=== PATIENT | male | born 1935 | race Caucasian/White ===

== ENCOUNTER 2016-12-26 23:36 | Inpatient (IN) | payer MEDICARE, BC ==
--- NOTE | ~2016-12-26 | CN ---
Consultation Report [facility] [address] [place]. [address] NAME: STANLEY DERAS : 35 STATUS : ADM IN PAT#: [id number] AGE: 81 ADM/REG DATE : 12/27/16 MR#: [id number] REPORT SERV DATE: 12/28/16 DICTATED BY: CHUN MORALES DATE: 12/28/16 REPORT STATUS : Draft TRANSCRIBED BY: MODYvonne DATE: 12/28/16 CARDIOLOGY CONSULTATION NOTE DATE OF CONSULTATION: 12/28/2016 REASON FOR CONSULTATION: Consideration of LINQ implantable loop recorder. HISTORY OF PRESENT ILLNESS: Mr. Deras is an 81-year-old man with a past medical history significant for Parkinson's disease. The patient has no previous cardiovascular history. He specifically denies any history of atrial fibrillation, atrial dysrhythmia, or cardiovascular disease. The patient was apparently in his usual state of health until the evening of 12/26/2016. The patient was watching TV in a lounge's chair when he suddenly felt very weak and had difficulty speaking. The patient was unable to ambulate by himself due to left-sided weakness. The patient was brought to [facility] at approximately 08:30 p.m. He was diagnosed with a stroke, and was felt not to be a candidate for tPA. The patient has had an extensive workup at this time including a transthoracic echocardiogram, bilateral carotid duplex ultrasound, and MRI of the head with MRA of the great vessels of the head and neck. The workup has been essentially negative. The patient has grade 1 carotid disease bilaterally with atherosclerotic plaquing of the vertebral arteries noted on magnetic resonance imaging and no other significant occlusive disease reported. The patient did suffer a right pontine infarct according to his MRI scan. At this time, the patient reports that his left-sided weakness is improving. He continues to have a mild dysarthria. He denies any chest pain, palpitations, dyspnea, dizziness, and he denies any history of syncope. PAST MEDICAL HISTORY: 1. Parkinson's disease. 2. Hypertension. 3. Osteoarthritis. 4. History of urinary incontinence. 5. Nlgh-ch-fvhowkoe dementia. 6. Seasonal allergies. PAST SURGICAL HISTORY: Significant for left total knee replacement and umbilical hernia repair. FAMILY HISTORY: Significant for parkinsonian dementia. The patient's father of complications of myocardial infarction and stroke. The patient has two brothers and two sisters, each of which is healthy. SOCIAL HISTORY: The patient has no significant history of tobacco, alcohol, or drug use. He Consultation Report [address] [place]. 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 He is . REVIEW OF SYSTEMS: A complete 12-system review was performed. This is noncontributory except for the pertinent positives and negatives noted in the history of present illness above. PHYSICAL EXAMINATION: VITAL SIGNS: Temperature is 99.4 degrees Fahrenheit, blood pressure is 150/69 mmHg, respirations 18, heart rate is 67 beats per minute and regular, oxygen saturation is 94% on room air. CONSTITUTIONAL: The patient is an elderly white man, with facial "masking", consistent with his history of Parkinson's disease. He appears to be in no acute distress at this time. EYES: PERRL, EOMI, clear conjunctiva. HEAD/MNT: NCAT with moist mucous membranes and grossly normal hard and soft palate. NECK: Supple with no obvious thyromegaly or lymphadenopathy CARDIOVASCULAR: There is a regular rhythm with a normal S1 and a physiologically split second heart sound. No significant murmurs, rubs, or gallops are noted. PULMONARY: Clear to auscultation bilaterally with decreased respiratory effort, but no wheezing, rales, rhonchi, or dullness to percussion. ABDOMINAL: Soft, non-tender, non-distended with no hepatosplenomegaly noted. EXTREMITIES: There is 1+ ankle edema. MUSCULOSKELETAL: Grossly normal strength and range of motion in all extremities INTEGUMENTARY: Skin appears intact with no bruises, wounds or active lesions noted NEURO/PSYC: Alert and oriented x3, with no dysarthria, facial droop or lateralizing weakness noted. 12-LEAD EKG: The patient's 12-lead EKG shows normal sinus rhythm with a heart rate of 68 beats per minute. There is no significant abnormality. ECHOCARDIOGRAM: This shows normal left ventricular systolic function with an ejection fraction of 64%. There is normal right ventricular function. There is mild aortic insufficiency with no other significant valvular heart disease. An agitated saline contrast study is negative for intracardiac shunting. LABORATORY DATA: The patient's lab workup is reviewed. There are no clinically significant lab abnormalities noted except for a very mildly elevated ESR. CARDIAC TELEMETRY: The patient's cardiac nurse monitoring is reviewed. The patient is currently in sinus bradycardia. There are no significant arrhythmias noted on the patient's nurse monitoring at this time. ASSESSMENT AND PLAN: Cryptogenic stroke: Given the patient's advanced age, this is most likely a plaque rupture phenomenon. However, I feel it would not be unreasonable for the patient to have an implantable loop recorder placed. The patient and his family wished to proceed and this apparently has been recommended to them by the Neurology Service. I have Consultation Report [address] [place]. [address] NAME: STANLEY DERAS : 35 STATUS : ADM IN [facility]#: [id number] AGE: 81 ADM/REG DATE : 12/27/16 MR#: [id number] REPORT SERV DATE: 12/28/16 DICTATED BY: CHUN MORALES DATE: 12/28/16 REPORT STATUS : Draft TRANSCRIBED BY: LARS DATE: 12/28/16 discussed this with the EP service. The EP service will evaluate the patient later today, and plan on ILR placement tomorrow morning. The patient has no other active cardiovascular issues, and my paining can be discharged to the rehab following placement of his implantable loop recorder tomorrow, provided the EP Service agrees. Thank you for allowing me to participate in the care of Mr. Deras. The Cardiology Service will continue to follow the patient during this hospitalization. KHUSHI/LARS Chun Morales MD / [id number] CC: Janice Jasso M.D.
--- NOTE | ~2016-12-26 | HP ---
History And Physical [place] [id number] [facility] [place]. [address] NAME: STANLEY DERAS : 35 STATUS : ADM Anselmo PAT#: [id number] AGE: 81 ADM/REG DATE : 12/26/16 MR#: [id number] REPORT SERV DATE: 12/27/16 DICTATED BY: DATE: REPORT STATUS : Draft TRANSCRIBED BY: MODL DATE: 12/27/16 DATE OF ADMISSION: 12/26/2016 The patient is admitted to the [facility] Hospitalist Service. CHIEF COMPLAINT: Weakness. HISTORY OF PRESENT ILLNESS: Mr. Deras is an 81-year-old white male with Parkinson disease and minimal other past medical history, who was in his usual state of health until around 6 p.m., when his noticed that he was too weak to get up out of his chair after eating supper. She felt that he may have had slightly garbled speech at that point. He has a chair lift at home and so she attempted to use that to get him up, but he was unable to. He had a walker in his house from a knee replacement seven years ago, so she was able to get him up with that, and walked him to the restroom, where she continued to notice that he was too weak for her to be able to manage. The patient refused to be transported by EMS, and so was brought to the ER by his with ER arrival time of 10:15. NIH stroke scale score is 2-3, and the patient's symptoms have been discussed with Neurology, who has determined he is not a candidate for tPA. Currently, dysarthria has resolved and the patient's reports that he is back to his baseline mentation and speaking. However, he remains very weak, particularly in bilateral lower extremities, and when asked his only other complaint is of a sense of imbalance and difficulty sensing where the ground is. The patient takes aspirin daily for "preventative reasons," but has no history of coronary artery disease, prior CVA, or TIAs. He has minimal cardiovascular risk factors. There is documented history of hypertension, but he does not take any medications for this and his reports this has not actually been an issue for him. He has no known diabetes and no known issues with his cholesterol. "He is healthy except for his Parkinson's." CT scan of the brain without contrast was obtained and is normal, as are CBC and electrolyte panel, and the patient is referred to the Hospitalist Service for admission. REVIEW OF SYSTEMS: A full 14-point review of systems is negative except as dictated in the history of present illness. Of note, the patient has been experiencing a particularly stressful few days, packing up his house and preparing to move to [place] to live closer to their eldest son. The patient's was concerned that the stress may have affected symptom onset today. Primary care provider is Dr. Angel Kohler and neurologist is Dr. Ayde Lacey. PAST MEDICAL HISTORY: Includes Parkinson disease, osteoarthritis, and notes that he has been incontinent of urine for the past three-four months. History And Physical [address] [address] NAME: STANLEY DERSA : 35 STATUS : ADM Anselmo PAT#: [id number] AGE: 81 ADM/REG DATE : 12/26/16 MR#: [id number] REPORT SERV DATE: 12/27/16 DICTATED BY: DATE: REPORT STATUS : Draft TRANSCRIBED BY: LARS DATE: 12/27/16 PAST SURGICAL HISTORY: Includes knee replacement and umbilical hernia surgery. ALLERGIES: NO KNOWN DRUG ALLERGIES. MEDICATIONS: 1. Aspirin 81 mg p.o. at bedtime. 2. Sinemet 25/100, two tablets p.o. three times daily before meals. 3. Vitamin D3 2000 units p.o. daily. 4. Aricept 15 mg p.o. at bedtime. 5. Nikole 180 mg p.o. daily as needed for allergy symptoms. 6. Ibuprofen 200 mg p.o. daily. 7. Mirapex 0.25 mg p.o. three times a day with meals. 8. Rasagiline 1 mg p.o. daily. 9. Citracal 500 mg p.o. daily. SOCIAL HISTORY: The patient is and his is here at the bedside. As stated above, they are in the process of moving to [place] to live closer to their eldest son. He uses a cane to ambulate at baseline and a lift chair, but otherwise is largely independent of his activities of daily living, toileting and dressing by himself. He has no history of tobacco use or alcohol use and no illicit substance use. FAMILY HISTORY: Pertinent for dementia in his mom, and believes that the actual diagnosis was Parkinson's. Father had myocardial infarction and CVA in his 70s. The patient has two brothers and two sisters, all of whom are healthy. PHYSICAL EXAMINATION: VITAL SIGNS: Blood pressure 138/67, pulse 65, respirations 24, oxygen saturations 97% on room air, temperature 98 degrees. GENERAL: This is a well-developed, well-groomed white male, in no acute distress. Alert and oriented in three dimensions. Pleasant, but minimally conversant. HEENT: Normocephalic, atraumatic. Pupils equally round, reactive to light. No scleral icterus. No conjunctival pallor. No sinus tenderness to palpation. No nasal drainage. Oropharynx moist and pink with no posterior pharyngeal erythema nor exudate. NECK: Supple. No jugular venous distention. No lymphadenopathy. No bruits. CARDIOVASCULAR: Regular rate and rhythm with no murmurs, rubs or gallops. LUNGS: Clear to auscultation bilaterally. No wheezes, crackles, nor rhonchi. ABDOMEN: Soft, nontender, and nondistended with normoactive bowel sounds in four quadrants and no hepatosplenomegaly. EXTREMITIES: No cyanosis, clubbing, or edema. Bilateral dorsalis pedis pulses 2+, equal and symmetric. NEUROLOGIC: Cranial nerves 2 through 12 were tested and are intact. Prominent masked facies. No evidence of tongue deviation, and gag reflexes intact. Sensation is intact to fine touch and temperature in all four limbs. The patient has some resting tremor. Minimal of the left upper extremity and some cogwheeling. Strength in both upper extremities is 5/5. Strength in bilateral lower extremities 4-/5. Toes are bilaterally upgoing. History And Physical [address] [address] NAME: STANLEY DERAS : 35 STATUS : ADM Anselmo PAT#: [id number] AGE: 81 ADM/REG DATE : 12/26/16 MR#: [id number] REPORT SERV DATE: 12/27/16 DICTATED BY: DATE: REPORT STATUS : Draft TRANSCRIBED BY: MODL DATE: 12/27/16 PERTINENT LABS: White blood cell count 7.6, hemoglobin 13.8, hematocrit 42.2, platelets 176. INR 1.0. Sodium 142, potassium 4.0, chloride 108, bicarb 28, BUN 20, creatinine 0.9, glucose 112, calcium 9.1. Review of past laboratory data show prior hemoglobin A1c value of 6.1 in 2016, total cholesterol 152, HDL 48, LDL 79, triglycerides 125 in 2016. Normal PSA of 0.4 at that time and a serum protein electrophoresis normal in 2016. IMAGING: Brain CT without contrast done today shows stable asymmetric prominence of the atrium of the right lateral ventricle, felt to be congenital or developmental variant. No focal chronic or acute CVA and no acute intracranial hemorrhage. Stable advanced diffuse cerebral involutional change. IMPRESSION: 1. Bilateral lower extremity weakness, imbalance, resolved dysarthria - suspect subacute cerebrovascular accident versus transient ischemic attack. 2. Hyperglycemia - rule out diabetes mellitus type 2. 3. Parkinson disease. 4. Osteoarthritis. 5. Recent urinary incontinence. PLAN: 1. The patient is being admitted in observation status to a cardiac telemetry unit. [facility] requested specifically given the neurologic complaints. 2. As discussed above, case has already been reviewed with Neurology, who states the patient is not a tPA candidate and would not benefit from thrombolytic administration. Thus, we will manage the symptoms with Plavix in lieu of the aspirin he takes at home, and Lipitor will be initiated as well. Allow for permissive elevations of blood pressure. 3. Obtain MRI brain and MRA head and neck. 4. Obtain an echocardiogram. 5. Check EKG. 6. Neurologic consultation requested for the morning. 7. PT, OT, speech therapy consults have been requested. 8. Home medications were reviewed and reconciled - continued as appropriate. BOONE/LARS Cuate Torres M.D. / [id number] CC: Cuate Torres M.D. History And Physical [address] [address] NAME: STANLEY DERAS : 35 STATUS : ADM Anselmo PAT#: [id number] AGE: 81 ADM/REG DATE : 12/26/16 MR#: [id number] REPORT SERV DATE: 12/27/16 DICTATED BY: DATE: REPORT STATUS : Draft TRANSCRIBED BY: MODL DATE: 12/27/16 Angel Kohler M.D. Ayde Lacey M.D.
--- NOTE | ~2016-12-26 | DS ---
Discharge Summary [facility] [address] [facility] [place]. [address] NAME: STANLEY CANALES : 35 STATUS : DIS IN PAT#: [id number] AGE: 81 ADM/REG DATE : 12/27/16 MR#: [id number] REPORT SERV DATE: 12/30/16 DICTATED BY: AMARJIT HOWELL DATE: 12/29/16 REPORT STATUS : Draft TRANSCRIBED BY: MODYvonne DATE: 12/29/16 ADMISSION DATE: 12/27/2016 DISCHARGE DATE: 12/29/2016 REASON FOR ADMISSION: This is an 81-year-old male who the evening prior to admission had began feeling very weak, having difficulty speaking, and was unable to get out of his chair due to lower extremity weakness. DISCHARGE DIAGNOSES: 1. Acute cerebrovascular accident of right ramona. 2. Stenosis of left carotid siphon. 3. Parkinson disease. 4. Mild dementia. 5. Osteoarthritis. 6. Urinary incontinence. HOSPITAL COURSE: Acute CVA. The patient on presentation to the emergency room had a CT of the brain, which would show no acute CVA or other acute intracranial pathology. He then had a followup MRI of the brain with and without contrast which would show a small posterior right pontine infarction without mass effect, also had MRI of cervical spine which would show spondylitic changes present at right C4-5 and left C5-C6, and then MRA of head and neck which shows focal left carotid siphon high-grade short-length stenosis. An echocardiogram would be performed and would show no thrombus. Left ventricle ejection fraction of 64%. Right ventricle systolic function intact. Negative bubble study. Mild aortic regurgitation. Due to being unable to find a cause of the stroke as the patient did not have any overt arrhythmias, negative echo, and then of course, the carotid disease being on the left side, not the right side, and additionally also being too high up for surgical intervention, Cardiology was consulted for loop recorder insertion and that was done this morning. The patient's weakness and dysarthria are improved, but he is still in need of rehab. He is scheduled to go to [facility] for rehab today. DISCHARGE CONDITION: Stable. DISCHARGE MEDICATIONS: 1. Vitamin D3 2000 units p.o. daily. 2. Aspirin 81 mg p.o. daily. 3. Carbidopa/levodopa 25/100, two tabs t.i.d. 4. Azilect 1 mg p.o. daily. 5. Aricept 15 mg p.o. q.h.s. 6. Mirapex 0.25 mg p.o. t.i.d. 7. Nikole 180 mg p.o. p.r.n. 8. Atorvastatin 40 mg p.o. q.h.s. 9. Plavix 75 mg p.o. daily. 10.Amlodipine 5 mg p.o. daily. DISCHARGE PLAN: The patient was discharged to [facility] for inpatient rehab and follow Discharge Summary [address] [place]. [address] NAME: STANLEY CANALES : 35 STATUS : DIS IN PAT#: [id number] AGE: 81 ADM/REG DATE : 12/27/16 MR#: [id number] REPORT SERV DATE: 12/30/16 DICTATED BY: AMARJIT HOWELL DATE: 12/29/16 REPORT STATUS : Draft TRANSCRIBED BY: LARS DATE: 12/29/16 up with their primary care, Angel Kohler, after rehab. Also will follow up with Cardiology, Dr. Morales, regarding loop recorder readings. DICTATED BY: MARY Decker/LARS Amarjit Howell APN / [id number] CC: Janice Jasso M.D. [facility]ann L[facility] Johnson, MJ, [facility] Rodriguez Morales MD
--- NOTE | ~2016-12-26 | CN ---
Consultation Report [facility] [address] [place]. [address] NAME: STANLEY CANALES : 35 STATUS : ADM Anselmo PAT#: [id number] AGE: 81 ADM/REG DATE : 12/26/16 MR#: [id number] REPORT SERV DATE: 12/27/16 DICTATED BY: PATRIZIA LOGAN DATE: 12/27/16 REPORT STATUS : Draft TRANSCRIBED BY: MODL DATE: 12/27/16 NEUROLOGY CONSULTATION DATE OF CONSULTATION: REASON FOR CONSULTATION: Subacute stroke and Parkinson's disease. STUDENT NURSE: Dr. Rock Canseco. NEUROLOGIST: Dr. Ayde Lacey. HISTORY OF PRESENT ILLNESS: The patient is an 81-year-old male, who was sitting in his lounge chair at 06:00 p.m. yesterday evening watching TV. He suddenly stated that he felt very weak and was having difficulty speaking. He wanted to get out of the chair, but could not because of lower extremity weakness. His went and got his walker, which he had at home from a previous total knee arthroplasty. She tried to get him out of the chair and help him ambulate, but he could not bear weight on his own. She also noticed that in addition to his dysarthria, he was weak particularly on the left side. By 08:30 p.m., she thought that maybe he needed to come to the emergency department for further evaluation and treatment. They decided not to send him in the ambulance, but she got him in the car, and brought him to [facility] for further evaluation and treatment. He arrived at the hospital at approximately 09:45 p.m. to 10:00 p.m. By this time, he was out of the "window" for tPA. He was evaluated and admitted to the hospital for further evaluation and treatment. By this time, his dysarthria had resolved, but he was still weak in the lower extremities, and particularly on the left side. The patient has Parkinson's disease. He was diagnosed seven years ago. He is seen by Dr. Ayde Lacey and is currently on Mirapex, Sinemet, and Azilect. These medications seem to control his Parkinson's disease fairly well. He normally has rest tremor in the left hand and is somewhat imbalanced, but has a fairly good quality to life. PAST MEDICAL HISTORY: Parkinson's disease, osteoarthritis, urinary incontinence, hypertension, seasonal allergies, mild dementia. PAST SURGICAL HISTORY: Left total knee replacement, umbilical hernia repair. HOME MEDICATIONS: Home medication list consists of aspirin 81 mg daily, carbidopa/levodopa 25/100 mg two tablets three times a day 30 minutes prior to meals, vitamin D3 2000 units daily, Aricept 15 mg at bedtime, Nikole 180 mg daily, Advil p.r.n., Mirapex 0.25 mg t.i.d. 30 minutes after meals, Azilect 1 mg daily, and Citracal daily. ALLERGIES: NONE. SOCIAL HISTORY: The patient is . He lives with his . He has three grown sons. Consultation Report [address] [place]. 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 He does not smoke. He does not drink alcohol or use illicits. FAMILY HISTORY: The patient's mother from Parkinson's disease and dementia. Father from an AL and stroke. He has two brothers and two sisters who are healthy. REVIEW OF SYSTEMS: For pertinent positives, please see HPI. PHYSICAL EXAMINATION: GENERAL: The patient is an 81-year-old male, who stands 5 feet 10 inches tall and weighs 215 pounds. VITAL SIGNS: He is afebrile. Heart rate 62, respiratory rate 18, O2 saturations on room air 96%, blood pressure 154/68. NEURO: The patient is oriented x4. He is alert. He does have hypophonia, bradykinesia, bradyphrenia, and hypomania. Pupils are 2 mm, they are reactive. PERRLA. Cranial nerves II through XII are intact except the patient does have a left-sided facial droop with diminished nasolabial folding. He can move all extremities x4. He does have slight rigidity. No cogwheeling. No tremor in the upper extremities. He does have a pronator drift on the left. Upper extremity strength is 4/5 on the right and 3/5 on the left. Upper DTRs are 1+ bilaterally at best. No reported sensory deficits. Lower extremity strength is a 3/5 on the right and a 2/5 on the left. Unable to elicit patellar DTRs. Plantar reflexes are silent. He has intact position sense in the lower extremities. Diminished vibratory and temperature sensation. Pinprick and light touch sensation is intact bilaterally. NECK: No carotid bruits, JVD, or thyromegaly. CHEST: Lung sounds clear, diminished in the bases. CARDIAC: Regular rate and rhythm. LABORATORY DATA: CBC is normal. BMP is normal. A1c 5.7. Urinalysis is negative for UTI. CT of the brain, no acute changes, questionable ventriculomegaly. NIH stroke scale is a total of 4. ASSESSMENT/PLAN: 1. 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 At this point, the patient will undergo an MRI of the brain and C-spine and MRA of the head and neck. He has been placed on Plavix 75 mg daily and Lipitor 40 mg daily. He will continue his aspirin 81 mg daily, PT/OT and Speech Therapy consults. He will go to rehab and risk factor reduction was discussed with the patient. 2. Imbalance. This is probably multifactorial in nature. He most likely had a stroke. He has Parkinson's disease, and mild peripheral neuropathy. At this point, the patient will have lab work checked, which will include B12, folate, CPK, aldolase, sedimentation rate, C-reactive protein, and a.m. cortisol level. 3. Parkinson's disease. At this point, the patient will continue his current medication. I will write an order for the patient's to give him his medications, so he can keep on his same dosage and same dosage scheduled. Consultation Report [place] [id number] [place]. [address] NAME: STANLEY CANALES : 35 STATUS : ADM Anselmo PAT#: [id number] AGE: 81 ADM/REG DATE : 12/26/16 MR#: [id number] REPORT SERV DATE: 12/27/16 DICTATED BY: PATRIZIA LOGAN DATE: 12/27/16 REPORT STATUS : Draft TRANSCRIBED BY: LARS DATE: 12/27/16 Thank you again for including us in consultation. We will continue to follow with you. CARMEN/LARS Patrizia Logan DNP, [facility] / [id number] CC: MD Angel Otero M.D. Carlos Baleeiro, M.D. Sharon Farber, M.D.
[2016-12-26 23:08] LABS: BASOPHILS 0.3 %; BASOPHILS ABSOLUTE 0.02 10/3/uL (0.0-0.16); EOSINOPHILS 2.4 %; EOSINOPHILS ABSOLUTE 0.18 10/3/uL (0.0-0.53); ER CBC TAT 0 Hrs 10 Mins; HEMATOCRIT 42.2 % (40.0-51.0); HEMOGLOBIN 13.8 g/dL (13.6-17.8); IMMATURE GRANULOCYTES 0.3 %; IMMATURE GRANULOCYTES ABSOLUTE 0.02 10/3/uL (0.0-0.11); LYMPHOCYTES 25.2 %; MEAN CORPUS HGB CONC 32.7 g/dL (32.0-36.0); MEAN CORPUSCULAR HEMOGLOB 31.1 pg (26.0-34.0); MEAN PLATELET VOLUME 10.2 fL (9.2-13.0); MONOCYTES 10.9 %; MONOCYTES ABSOLUTE 0.82 10/3/uL (0.21-1.20); NEUTROPHILS 60.9 %; NEUTROPHILS ABSOLUTE 4.61 10/3/uL (2.02-8.40); PLATELET COUNT 176 10/3/uL (150-400); RBC DISTRIBUTION WIDTH 12.8 % (12.0-16.0); RED CELL COUNT 4.44 10/6/uL (4.7-6.1); WHITE BLOOD CELLS 7.6 10/3/uL (4.5-10.5)
[2016-12-26 23:16] LABS: PARTIAL THROMBO TIME 26.9 SEC (22.5-37.2)
[2016-12-26 23:18] LABS: MANUAL DIFF NO %
[2016-12-26 23:21] LABS: PROTIME (NOT ORD) 13.3 SEC (12.0-14.5)
[2016-12-26 23:30] LABS: BUN (BLOOD UREA NITROGEN) 20 MG/DL (6-23); CALCIUM, SERUM 9.1 MG/DL (8.5-10.4); CHLORIDE, SERUM 108 MMOL/L (96-112); CO2 (CARBON DIOXIDE) 28 MMOL/L (24-34); CREATININE 0.89 MG/DL (0.70-1.30); GFR AFRICAN AMERICAN 93 ML/MIN (>=60); GFR NON AFRICAN AMERICAN 80 ML/MIN (>=60); GLUCOSE, SERUM 112 MG/DL (60-99); SODIUM, SERUM 142 MMOL/L (135-148)
[~2016-12-26 23:36] MED LIST: ARICEPT10 PO; ASAB PO; AZILECT1 MG PO; BONIVA150 MG PO; CITRACAL PO; CRESTOR10 PO; FISH OIL1200 MG PO; LOPID6 PO; PRIN20 PO; ZESTRIL10 MG PO; ZOCOR5 MG PO
[2016-12-26] MEDS ORDERED: VITAMIN D31000 UNIT PO (23:46)
[2016-12-26] MEDS ORDERED: ADVIL PO (23:46)
[2016-12-26] MEDS ORDERED: HALF81 PO (23:47)
[2016-12-26] MEDS ORDERED: [UNRECOGNIZED DRUG - OTHER] PO (23:48)
[2016-12-26] MEDS ORDERED: SIN25 PO (23:48)
[2016-12-26] MEDS ORDERED: AZILECT1 MG PO (23:49)
[2016-12-26] MEDS ORDERED: ARICEPT10 PO (23:49)
[2016-12-26] MEDS ORDERED: MIRAPEX250 PO (23:49)
[2016-12-26] MEDS ORDERED: ALLEGRA180 PO (23:49)
[2016-12-27 05:08] LABS: BASOPHILS 0.3 %; BASOPHILS ABSOLUTE 0.02 10/3/uL (0.0-0.16); EOSINOPHILS 2.7 %; EOSINOPHILS ABSOLUTE 0.19 10/3/uL (0.0-0.53); HEMATOCRIT 41.9 % (40.0-51.0); HEMOGLOBIN 13.7 g/dL (13.6-17.8); IMMATURE GRANULOCYTES 0.3 %; IMMATURE GRANULOCYTES ABSOLUTE 0.02 10/3/uL (0.0-0.11); LYMPHOCYTES 25.7 %; LYMPHOCYTES ABSOLUTE 1.82 10/3/uL (0.67-4.30); MEAN CORPUS HGB CONC 32.7 g/dL (32.0-36.0); MEAN CORPUSCULAR HEMOGLOB 31.3 pg (26.0-34.0); MEAN CORPUSCULAR VOLUME 95.7 fL (80-100); MONOCYTES 9.6 %; MONOCYTES ABSOLUTE 0.68 10/3/uL (0.21-1.20); NEUTROPHILS 61.4 %; NEUTROPHILS ABSOLUTE 4.35 10/3/uL (2.02-8.40); PLATELET COUNT 152 10/3/uL (150-400); RBC DISTRIBUTION WIDTH 12.9 % (12.0-16.0); RED CELL COUNT 4.38 10/6/uL (4.7-6.1); WHITE BLOOD CELLS 7.1 10/3/uL (4.5-10.5)
[2016-12-27 05:10] LABS: MANUAL DIFF NO %
[2016-12-27 05:34] LABS: BUN (BLOOD UREA NITROGEN) 17 MG/DL (6-23); CALCIUM, SERUM 8.8 MG/DL (8.5-10.4); CHLORIDE, SERUM 107 MMOL/L (96-112); CO2 (CARBON DIOXIDE) 27 MMOL/L (24-34); CREATININE 0.73 MG/DL (0.70-1.30); GFR AFRICAN AMERICAN 101 ML/MIN (>=60); GFR NON AFRICAN AMERICAN 87 ML/MIN (>=60); GLUCOSE, SERUM 98 MG/DL (60-99); POTASSIUM, SERUM 4.1 MMOL/L (3.5-5.3); SODIUM, SERUM 139 MMOL/L (135-148)
[2016-12-27 08:40] LABS: ASCORBIC ACID (UR NOT ORDER) NEG (NEG); BILIRUBIN, URINE NEGATIVE (NEG); KETONE, URINE NEGATIVE (NEG); LEUKOCYTE ESTERASE(NOT OR NEG (NEG); WBC (NOT ORDERED) (RFLEX) 1 (0-5)
[2016-12-27 12:27] LABS: ALBUMIN 3.3 G/DL (3.5-5.0); C-REACTIVE PROTEIN 18.9 MG/L (<8.0); CHOL/HDL RATIO(NOT ORDER) 3.4 (0-5); DIRECT BILIRUBIN 0.1 MG/DL (0.0-0.4); INDIRECT BILIRUBIN(NOT ORDER) 0.4 MG/DL (0.1-0.9); TOTAL BILIRUBIN 0.5 MG/DL (0-1.2); TOTAL PROTEIN 7.4 G/DL (6.0-8.5)
[2016-12-27 12:28] LABS: FOLATE 28.2 NG/ML (>5.2)
[2016-12-28 06:35] LABS: CHOL/HDL RATIO(NOT ORDER) 3.8 (0-5)
[2016-12-29 06:53] LABS: BASOPHILS 0.5 %; BASOPHILS ABSOLUTE 0.03 10/3/uL (0.0-0.16); EOSINOPHILS 2.5 %; EOSINOPHILS ABSOLUTE 0.16 10/3/uL (0.0-0.53); HEMATOCRIT 42.3 % (40.0-51.0); HEMOGLOBIN 14.3 g/dL (13.6-17.8); IMMATURE GRANULOCYTES 0.2 %; IMMATURE GRANULOCYTES ABSOLUTE 0.01 10/3/uL (0.0-0.11); LYMPHOCYTES 24.4 %; LYMPHOCYTES ABSOLUTE 1.54 10/3/uL (0.67-4.30); MANUAL DIFF NO %; MEAN CORPUS HGB CONC 33.8 g/dL (32.0-36.0); MEAN CORPUSCULAR HEMOGLOB 31.6 pg (26.0-34.0); MEAN CORPUSCULAR VOLUME 93.6 fL (80-100); MONOCYTES 8.2 %; MONOCYTES ABSOLUTE 0.52 10/3/uL (0.21-1.20); NEUTROPHILS 64.2 %; NEUTROPHILS ABSOLUTE 4.05 10/3/uL (2.02-8.40); PLATELET COUNT 167 10/3/uL (150-400); RBC DISTRIBUTION WIDTH 12.7 % (12.0-16.0); RED CELL COUNT 4.52 10/6/uL (4.7-6.1); WHITE BLOOD CELLS 6.3 10/3/uL (4.5-10.5)
[2016-12-29 07:06] LABS: BUN (BLOOD UREA NITROGEN) 14 MG/DL (6-23); CALCIUM, SERUM 9.1 MG/DL (8.5-10.4); CHLORIDE, SERUM 104 MMOL/L (96-112); CO2 (CARBON DIOXIDE) 29 MMOL/L (24-34); GFR AFRICAN AMERICAN 103 ML/MIN (>=60); GFR NON AFRICAN AMERICAN 89 ML/MIN (>=60); GLUCOSE, SERUM 99 MG/DL (60-99); POTASSIUM, SERUM 4.2 MMOL/L (3.5-5.3); SODIUM, SERUM 139 MMOL/L (135-148)
== END 2016-12-29 16:04 | DRG 41 ==
LOC: ER 23:36 → 1SO 23:59
PROVIDERS: Emergency Medicine; Hospitalist; Internal Medicine Cardiovascular Disease; Nurse Practitioner; Nurse Practitioner Gerontology
PROC: 0JH632Z Insertion of Monitoring Device into Chest Subcutaneous Tissue and Fascia, Percutaneous Approach (ICD-10-PCS; principal; 2016-12-29)
DX: I63.29 Cerebral infarction due to unspecified occlusion or stenosis of other precerebral arteries (principal); G81.94 Hemiplegia, unspecified affecting left nondominant side; G20 Parkinson's disease; I65.22 Occlusion and stenosis of left carotid artery; M17.10 Unilateral primary osteoarthritis, unspecified knee; I10 Essential (primary) hypertension; F02.80 Dementia in other diseases classified elsewhere, unspecified severity, without behavioral disturbance, psychotic disturbance, mood disturbance, and anxiety; Z96.651 Presence of right artificial knee joint; R32 Unspecified urinary incontinence; M47.9 Spondylosis, unspecified; Z96.652 Presence of left artificial knee joint; Z82.3 Family history of stroke; Z82.49 Family history of ischemic heart disease and other diseases of the circulatory system; Z98.890 Other specified postprocedural states
CPT/HCPCS: 33282; 70450; 70544; 70548; 70553; 72156; 80048; 80061; 80076; 81001; 82085; 82140; 82306; 82533; 82550; 82607; 82746; 83036; 83735; 84443; 85025; 85610; 85652; 85730; 86140; 92522-GN; 92610-GN; 93005; 97110-GO; 97161-GP; 97166-GO; 97530-GP; 97535-GO; 99285; A9270-GY; A9577; C1764; C8929; G8978-CM-GP; G8979-CK-GP; G8987-CL-GO; G8988-CK-GO; G8996-CI-GN; G8996-CJ-GN; G8997-CI-GN; G8998-CI-GN; G9158-CJ-GN; G9186-CJ-GN; J0690; Q9957